=== PATIENT | female | born 1955 | race Caucasian/White ===

== ENCOUNTER → 2024-07-06 16:33 | Outpatient (REF) | payer OTHER, SELFPAY | LOC: RAD 16:33 | PROVIDERS: ATTENDING PHYSICIAN Family Medicine | DX: M25.552 Pain in left hip (principal) | CPT/HCPCS: 73502 ==

== ENCOUNTER → 2024-10-19 10:19 | Outpatient (REF) | payer OTHER, SELFPAY | LOC: WDC 10:19 | PROVIDERS: ATTENDING PHYSICIAN Physician Assistant; FAMILY PHYSICIAN Family Medicine | DX: Z12.31 Encounter for screening mammogram for malignant neoplasm of breast (principal) | CPT/HCPCS: 77063; 77067 ==

== ENCOUNTER → 2024-11-01 10:15 | Outpatient (REF) | payer OTHER, SELFPAY | LOC: WDC 10:15 | PROVIDERS: ATTENDING PHYSICIAN Physician Assistant | DX: R92.8 Other abnormal and inconclusive findings on diagnostic imaging of breast (principal) | CPT/HCPCS: 76642 ==